=== PATIENT | female | born 1990 | race African-American/Black ===

== ENCOUNTER 2016-12-14 19:01 | Emergency (ER) | payer BC ==
[~2016-12-14] VITALS: Ht 162.6 cm; Wt 90.7 kg
[~2016-12-14 19:01] MED LIST: NO MEDICATIONS
[2016-12-14 19:42] LABS: BASOPHIL% 0.4 % (0-2.5); EOSINOPHIL# 0.1 X10e3 (0-0.7); EOSINOPHIL% 0.6 % (0.0-7.0); HEMATOCRIT 42.4 % (35.0-45.0); HEMOGLOBIN 14.3 gm/dL (12.0-16.0); LYMPHOCYTE# 0.6 X10e3 (1.0-3.5); MEAN CELL VOLUME 83.2 FL (83-96); MEAN CORPUSCULAR HGB CONC 33.6 g/dL (30-36); MEAN PLATELET VOLUME 7.9 FL (6.5-11.5); MONOCYTE# 0.5 X10e3 (0-1.0); MONOCYTE% 5.4 % (3.0-12.0); NEUTROPHIL# 8.5 X10e3 (1.5-7.1); NEUTROPHIL% 87.6 % (40-75); PLATELET COUNT 364 X10e3 (140-420); RED CELL DISTRIBUTION WIDTH 12.9 % (11.0-15.5); WHITE BLOOD COUNT 9.7 X10e3 (4.0-10.5)
[2016-12-14 19:48] LABS: DIFF IND NO
[2016-12-14 19:54] LABS: URINE SOURCE CLEAN CATCH
[2016-12-14 19:59] LABS: URINE APPEARANCE CLOUDY; URINE BILIRUBIN NEG (NEG); URINE BLOOD 4+ (NEG); URINE COLOR RED; URINE GLUCOSE NORM (NORM); URINE KETONE 3+ (NEG); URINE LEUKOCYTE ESTERASE NEG (NEG); URINE NITRATE NEG (NEG); URINE PROTEIN 1+ (NEG); URINE UROBILINOGEN NORM (NORM)
[2016-12-14 20:06] LABS: CULTURE INDICATED? NO; URBCS1 AUWI INNUM /[HPF] (0-2); URINE SQUAMOUS EPITHELIAL CELL FEW /[HPF]; UWBCS1 AUWI 0-2 (0-5)
[2016-12-14 20:07] LABS: BILIRUBIN, DIRECT 0.1 mg/dL (0.0-0.2); BILIRUBIN,INDIRECT 0.3 mg/dL (0.0-0.9); BILIRUBIN,TOTAL 0.4 mg/dL (0.2-2.0); BUN/CREATININE RATIO 16.25; CALCIUM SERUM 9.1 mg/dL (8.4-10.2); CREATININE SERUM 0.8 mg/dL (0.6-1.4); GLOM FILT RATE Estimated 100.4 mL/min (>60); POTASSIUM 3.8 mmol/L (3.5-5.1); PROTEIN TOTAL SERUM 8.3 g/dL (6.0-8.3)
== END 2016-12-14 23:00 | disposition home or self-care (01) ==
LOC: CED 19:01
DX: R11.2 Nausea with vomiting, unspecified (principal); R19.7 Diarrhea, unspecified
CPT/HCPCS: 36415; 80048; 80076; 81003; 83690; 84703; 85025; 99284